=== PATIENT | male | born 1945 | race Caucasian/White ===

== ENCOUNTER 2016-12-03 18:29 | Emergency (ER) | payer MEDICARE, OTHER ==
[~2016-12-03] VITALS: Ht 182.9 cm; Wt 79.0 kg
[2016-12-03] MEDS ORDERED: INSUH10VL SC (18:53)
[2016-12-03] MEDS ORDERED: SIMV40TA2 PO (18:53)
[2016-12-03] MEDS ORDERED: GLYB5TA GT (18:53)
[2016-12-03] MEDS ORDERED: METO25TA4 PO (18:53)
[2016-12-03] MEDS ORDERED: INSULANT SC (18:53)
[2016-12-03 20:58] LABS: BASO % 0.1 % (0.0-1.0); EOS # 0.1 K/mm3 (0.0-0.50); EOS % 0.7 % (0.0-3.0); LARGE UNSTAINED CELL # 0.1 K/mm3 (0.0-0.4); LARGE UNSTAINED CELL % 0.9 % (0.0-4.0); LYMPH # 1.4 K/mm3 (1.5-4.5); LYMPH % 9.8 % (24.0-44.0); MEAN CORPUSCULAR HEMOGLOBIN 32.1 pg (27.0-33.0); MEAN CORPUSCULAR HGB CONC 33.8 g/dl (32.0-36.5); MEAN CORPUSCULAR VOLUME 94.8 fl (80.0-96.0); MONO # 0.5 K/mm3 (0.0-0.8); MONO % 4.1 % (0.0-5.0); NEUTROPHILS # 10.8 K/mm3 (1.8-7.7); NEUTROPHILS % 84.4 % (36.0-66.0); PLATELET COUNT, AUTOMATED 152 k/mm3 (150-450); RED CELL DISTRIBUTION WIDTH 12.9 % (11.5-14.5); WHITE BLOOD COUNT 12.8 K/mm3 (4.0-10.0)
[2016-12-03] MEDS ORDERED: NS 1,000 ML IV SCH (20:58)
[2016-12-03] MEDS ORDERED: METOCLOPRAMIDE INJ 10MG/2ML VIAL (J2765) IV ONE (21:00)
[2016-12-03] MEDS ORDERED: CYCLOBENZAPRINE 10 MG TAB PO ONE (21:00)
[2016-12-03 21:03] LABS: ALBUMIN 3.9 GM/DL (3.2-5.2); ALBUMIN/GLOBULIN RATIO 1.34 (1.00-1.93); ALKALINE PHOSPHATASE 87 U/L (45-117); ALT/SGPT 19 U/L (12-78); ANION GAP 6 MEQ/L (8-16); AST/SGOT 15 U/L (15-37); BILIRUBIN,TOTAL 0.4 MG/DL (0.2-1.0); BLOOD UREA NITROGEN 19 MG/DL (7-18); CALCIUM LEVEL 8.9 MG/DL (8.8-10.2); CARBON DIOXIDE LEVEL 25 MEQ/L (21-32); CHLORIDE LEVEL 108 MEQ/L (98-107); CREATININE FOR GFR 0.93 MG/DL (0.70-1.30); GLOMERULAR FILTRATION RATE > 60.0 (>42); GLUCOSE, FASTING 105 MG/DL (83-110); SODIUM LEVEL 139 MEQ/L (136-145); TOTAL PROTEIN 6.8 GM/DL (6.4-8.2)
[2016-12-03 21:23] VITALS: BP 174/81
--- NOTE | 2016-12-03 22:00 | REPUSA ---
CT of the head Clinical history: Headache. Technique: Multiple axial CT images were obtained through the head without administration of contrast . Findings: The ventricles and sulci are symmetric bilaterally. Minimal subcortical low attenuation kelin nges are seen in the frontal lobes bilaterally. There is no evidence of acute hemorrhage or infarct. There is no midline shift, mass effect, or extra-axial fluid collection. The osseous structures are u nremarkable. The visualized paranasal sinuses and mastoid air cells are clear. Impression: No evidence of acute hemorrhage or infarct. Minimal chronic small vessel ischemic changes , predominantly in the frontal lobes.
[2016-12-03] MEDS ORDERED: CYCL10TA PO (22:29)
== END 2016-12-03 22:40 | disposition home or self-care (01) ==
LOC: M ED 18:29
DX: M43.6 Torticollis (principal); R51 Headache; E11.9 Type 2 diabetes mellitus without complications; I25.10 Atherosclerotic heart disease of native coronary artery without angina pectoris; F17.200 Nicotine dependence, unspecified, uncomplicated; Z95.1 Presence of aortocoronary bypass graft; Z79.4 Long term (current) use of insulin; Z79.899 Other long term (current) drug therapy; Z88.2 Allergy status to sulfonamides
CPT/HCPCS: 70450; 80053; 85025; 96374; 99284; J2765

== ENCOUNTER → 2021-09-08 | Outpatient (CLI) | payer OTHER ==
[~2021-09-08] MED LIST: CYCL-707 PO; GLYB5TAB6 GT; INSUH10VL SC; INSULANT SC; METO25TA4 PO; SIMV40TA20 PO
== END ==
LOC: M SOG 10:03
PROVIDERS: ATTEND Orthopaedic Surgery Hand Surgery
DX: M79.641 Pain in right hand (principal); M79.642 Pain in left hand

== ENCOUNTER → 2021-12-27 | Outpatient (CLI) | payer MEDICARE, OTHER ==
[~2021-12-27] MED LIST changes: +ELIQ5TAB PO; -GLYB5TAB6 GT; +GLYB5TAB6 PO; +LEVO75TA4 PO; +METF-839 PO; +VITA200016 PO
== END ==
LOC: M LABSMTC 10:29
PROVIDERS: ATTEND Anesthesiology
DX: Z01.818 Encounter for other preprocedural examination (principal); Z11.52 Encounter for screening for COVID-19

== ENCOUNTER 2022-01-01 06:41 | Day surgery (SDC) | payer OTHER ==
[~2022-01-01] VITALS: Ht 182.9 cm; Wt 81.6 kg
[2022-01-01] MEDS ORDERED: BUPIVACAINE HCL 0.25% 30ML VIAL As Ordered ONE (06:44)
[2022-01-01] MEDS ORDERED: BACITRACIN OINTMENT 30GM TUBE As Ordered ONE (06:44)
[2022-01-01] MEDS ORDERED: INSULIN LISPRO (NovoLOG) PER UNIT SC PRN ×2 (07:05→10:00)
[2022-01-01] MEDS ORDERED: LR 1,000 ML IV SCH ×2 (07:05→10:00)
[2022-01-01] MEDS ORDERED: ACETAMINOPHEN 1000MG 100ML IV BTL (OFIRMEV) (J0131 PER 10MG) As Ordered ONE (07:17)
[2022-01-01] MEDS ORDERED: fentaNYL 250 MCG/5 ML INJECTION As Ordered ONE (07:17)
[2022-01-01] MEDS ORDERED: ONDANSETRON 4MG 2ML VIAL As Ordered ONE (07:17)
[2022-01-01] MEDS ORDERED: dexameTHASONE 4 MG/ML 1ML VIAL (J1100 PER 1MG) As Ordered ONE (07:17)
[2022-01-01] MEDS ORDERED: LIDOCAINE 2% 100MG/5ML SDV (FOR ANES.) As Ordered ONE (07:17)
[2022-01-01] MEDS ORDERED: propofoL 200 MG/20 ML VIAL As Ordered ONE (07:17)
[2022-01-01] MEDS ORDERED: ceFAZolin 2 GM/D5W 50 ML IV BAG (J0690 PER 500MG) As Ordered ONE (08:27)
[2022-01-01] MEDS ORDERED: PHENYLephrine 500MCG 5ML (100MCG/ML) SYRINGE As Ordered ONE (08:48)
[2022-01-01] MEDS ORDERED: KETOROLAC 60MG 2ML VIAL As Ordered ONE (09:12)
[2022-01-01] MEDS ORDERED: oxyCODONE 5MG TAB PO PRN (10:00)
[2022-01-01] MEDS ORDERED: ONDANSETRON 4MG 2ML VIAL IV PRN (10:00)
[2022-01-01] MEDS ORDERED: fentaNYL 100 MCG/2 ML INJECTION IV PRN (10:00)
[2022-01-01 12:00] VITALS: BP 122/78
== END 2022-01-01 12:05 | disposition home or self-care (01) ==
LOC: M SDC 06:41
PROVIDERS: ATTEND Orthopaedic Surgery Hand Surgery
DX: M72.0 Palmar fascial fibromatosis [Dupuytren] (principal); E11.9 Type 2 diabetes mellitus without complications; Z95.1 Presence of aortocoronary bypass graft; F17.210 Nicotine dependence, cigarettes, uncomplicated; Z88.2 Allergy status to sulfonamides
CPT/HCPCS: 26123; 76000; 88304; J0131; J0690; J1100; J1885; J2370; J2405; J3010

== ENCOUNTER → 2023-10-07 | Outpatient (CLI) | payer OTHER | LOC: M RAD 13:45 | PROVIDERS: ATTEND Nurse Practitioner Family | DX: Z12.2 Encounter for screening for malignant neoplasm of respiratory organs (principal); F17.210 Nicotine dependence, cigarettes, uncomplicated ==

== ENCOUNTER → 2024-05-06 | Outpatient (CLI) | payer OTHER, MEDICARE | LOC: M RAD 08:42 | PROVIDERS: ATTEND Nurse Practitioner Family | DX: Z87.891 Personal history of nicotine dependence (principal) ==

== ENCOUNTER → 2024-11-04 | Outpatient (CLI) | payer OTHER, MEDICARE ==
[2024-11-04 17:36] LABS: APPEARANCE, URINE HAZY (CLEAR); BACTERIA, URINE AUTO NEGATIVE (NEGATIVE); BILIRUBIN, URINE AUTO NEGATIVE (NEGATIVE); BLOOD, URINE BLOOD 2+ (NEGATIVE); GLUCOSE, URINE (UA) AUTO 1+ mg/dL (NEGATIVE); KETONE, URINE AUTO NEGATIVE (NEGATIVE); LEUKOCYTE ESTERASE, URINE AUTO NEGATIVE (NEGATIVE); NITRITE, URINE AUTO NEGATIVE (NEGATIVE); PROTEIN, URINE AUTO 3+ mg/dL (NEGATIVE); RBC, URINE AUTO 6 /HPF (0-3); SPECIFIC GRAVITY URINE AUTO 1.028 (1.002-1.035); SQUAMOUS EPITHELIAL CELL UR AU 1 /HPF (0-6); UROBILINOGEN, URINE AUTO 0.2 mg/dL (0.0-2.0); WBC, URINE AUTO 3 /HPF (0-3)
== END ==
LOC: M RAD 12:21
PROVIDERS: ATTEND Physician Assistant
DX: N20.0 Calculus of kidney (principal); N23 Unspecified renal colic

== ENCOUNTER 2024-11-10 10:30 | Inpatient (IN) | payer OTHER, MEDICARE ==
[~2024-11-10] VITALS: Ht 182.9 cm; Wt 83.3 kg
[2024-11-10] MEDS ORDERED: MORPHINE 2 MG/ML 1 ML VIAL IV PRN (11:15)
[2024-11-10 12:09] LABS: BASO # 0.0 10^3/uL (0.0-0.2); BASO % 0.2 % (0.0-1.0); EOS # 0.1 10^3/uL (0.0-0.5); EOS % 0.6 % (0.0-3.0); LYMPH # 1.6 10^3/uL (1.5-5.0); LYMPH % 12.3 % (24.0-44.0); MONO # 1.0 10^3/uL (0.0-0.8); MONO % 7.8 % (2.0-8.0); NEUTROPHILS # 10.5 10^3/uL (1.5-8.5); NEUTROPHILS % 78.6 % (36.0-66.0); PLATELET COUNT, AUTOMATED 185 10^3/uL (150-450)
[2024-11-10] MEDS: MORPHINE 2 MG/ML 1 ML VIAL IV PRN (12:12)
[2024-11-10] MEDS: ONDANSETRON 4MG 2ML VIAL IV ONE (12:12)
[2024-11-10 12:24] LABS: INR 1.39
[2024-11-10 12:33] LABS: ALT/SGPT 17.0 U/L (7.0-40); AST/SGOT 18.0 U/L (<34); CALCIUM LEVEL 9.4 MG/DL (8.3-10.6); CARBON DIOXIDE LEVEL 22.0 MMOL/L (20-31); CHLORIDE LEVEL 108.0 MMOL/L (98-107); CREATININE FOR GFR 1.76 MG/DL (0.70-1.30); GLOMERULAR FILTRATION RATE 38.4 (>35); POTASSIUM SERUM 5.6 MMOL/L (3.5-5.1); SODIUM LEVEL 142.0 MMOL/L (136-145)
[2024-11-10] MEDS: [UNRECOGNIZED DRUG - OTHER] IV ONE (12:50)
[2024-11-10] MEDS: NS 0.9% IV ONE (12:50)
[2024-11-10 15:06] LABS: KETONE, URINE AUTO RFX NEGATIVE (NEGATIVE); LEUKOCYTE ESTERASE UR AUTO RFX NEGATIVE (NEGATIVE); NITRITE, URINE AUTO RFX NEGATIVE (NEGATIVE); RBC, URINE AUTO RFX 87 /HPF (0-3); SQUAM EPITHELIAL CELL UR AURFX 0 /HPF (0-6); WBC, URINE AUTO RFX 2 /HPF (0-3)
[2024-11-10] MEDS: MORPHINE 4 MG/ML 1 ML VIAL IV PRN (16:33)
[2024-11-10] MEDS ORDERED: LIDOCAINE 2% 100 MG/5 ML SDV (FOR ANES.) As Ordered ONE (16:49)
[2024-11-10] MEDS: CALCIUM CHLORIDE 10% 1 GM/10 ML SYR IV ONE (16:54)
[2024-11-10] MEDS: cefTRIAXone SOD 1 GM in DEXTROSE 5% (D5W) ADV/MINI-BAG 50 ML IV ONE (17:35)
[2024-11-10] MEDS: LIDOCAINE 2% 5 ML JELLY UROJET As Ordered ONE (17:54)
[2024-11-10] MEDS: ISOVUE-300 61% 100 ML VIAL As Ordered ONE (18:00)
[2024-11-10] MEDS ORDERED: ONDANSETRON 4MG 2ML VIAL IV PRN ×2 (18:20→20:40)
[2024-11-10] MEDS ORDERED: HYDROMORPHONE HCL 0.5 MG/0.5 ML SYRINGE IV PRN (18:20)
[2024-11-10 18:22] LABS: CALCIUM LEVEL 9.3 MG/DL (8.3-10.6); CARBON DIOXIDE LEVEL 18.0 MMOL/L (20-31); CHLORIDE LEVEL 112.0 MMOL/L (98-107); CREATININE FOR GFR 1.6 MG/DL (0.70-1.30); GLOMERULAR FILTRATION RATE 43.0 (>35); POTASSIUM SERUM 6.2 MMOL/L (3.5-5.1); SODIUM LEVEL 142.0 MMOL/L (136-145)
[2024-11-10] MEDS: LABETALOL 100 MG/20 ML VIAL IV PRN (18:55)
[2024-11-10] MEDS: PATIROMER SORBITEX CALCIUM 8.4GM POWDER PACKET PO STA (20:37)
[2024-11-10] MEDS ORDERED: ACETAMINOPHEN 325 MG TAB PO PRN (20:40)
[2024-11-10] MEDS: LR 1,000 ML IV SCH (20:53)
[2024-11-10] MEDS: CALCIUM GLUCONATE 1,000 MG in DEXTROSE 5% (D5W) MINI-BAG PLU 100 ML IV ONE (20:53)
[2024-11-10] MEDS: HumuLIN R (REGULAR) INSULIN (NovoLIN R) **100 U/ML** PER UNIT IV STA (20:54)
[2024-11-10] MEDS: DEXTROSE 50% 50 ML SYRINGE IV STA (20:54)
[2024-11-10] MEDS: ALBUTEROL SULFATE 2.5 MG/0.5 ML INH CONCENTRATE NEB SOLN NEB SCH (20:55)
[2024-11-10 21:33] VITALS: BP 150/72; TEMP 97.8; O2SAT 98
[2024-11-10] MEDS: NS (Normal Saline) 0.9% 1,000 ML IV SCH (21:40)
[2024-11-10] MEDS: DOCUSATE SODIUM 100 MG CAPSULE PO SCH (21:43)
[2024-11-10] MEDS ORDERED: ACET-907 PO (22:09)
[2024-11-10] MEDS ORDERED: METF10004 PO (22:09)
[2024-11-10] MEDS ORDERED: CYAN500T3 PO (22:12)
[2024-11-10] MEDS ORDERED: HOME MED LIST COMPLETE! XX SCH (22:15)
[2024-11-10 22:33] VITALS: BP 145/63; TEMP 97.9; O2SAT 95
[2024-11-10 23:34] VITALS: BP 133/62; TEMP 96.8; O2SAT 96
[2024-11-11] VITALS (9 sets, daily range): BP systolic 133–168; BP diastolic 50–74; TEMP 96.8–97.7; O2SAT 95–98
[2024-11-11 01:48] LABS: CALCIUM LEVEL 8.8 MG/DL (8.3-10.6); CARBON DIOXIDE LEVEL 22.0 MMOL/L (20-31); CHLORIDE LEVEL 111.0 MMOL/L (98-107); CREATININE FOR GFR 1.46 MG/DL (0.70-1.30); GLOMERULAR FILTRATION RATE 48.0 (>35); POTASSIUM SERUM 5.3 MMOL/L (3.5-5.1); SODIUM LEVEL 141.0 MMOL/L (136-145)
[2024-11-11] MEDS ORDERED: DEXTROSE 50% 50 ML SYRINGE IV PRN (01:55)
[2024-11-11] MEDS ORDERED: GLUCAGON INJ 1 MG VIAL SC PRN (01:55)
[2024-11-11] MEDS ORDERED: GLUCOSE 4 GM CHEW PO PRN (01:55)
[2024-11-11 04:34] LABS: PLATELET COUNT, AUTOMATED 161 10^3/uL (150-450)
[2024-11-11 05:14] LABS: ALT/SGPT 12.0 U/L (7.0-40); AST/SGOT 13.0 U/L (<34); CALCIUM LEVEL 8.8 MG/DL (8.3-10.6); CARBON DIOXIDE LEVEL 22.0 MMOL/L (20-31); CHLORIDE LEVEL 113.0 MMOL/L (98-107); CREATININE FOR GFR 1.4 MG/DL (0.70-1.30); GLOMERULAR FILTRATION RATE 50.5 (>35); POTASSIUM SERUM 5.2 MMOL/L (3.5-5.1); SODIUM LEVEL 144.0 MMOL/L (136-145)
[2024-11-11] MEDS: INSULIN LISPRO (NovoLOG) PER UNIT SC SCH ×2 (08:58→21:00)
[2024-11-11] MEDS: NS 0.45% 1,000 ML IV SCH (08:58)
[2024-11-11] MEDS: TAMSULOSIN 0.4 MG CAP PO SCH (08:58)
[2024-11-11 09:28] LABS: CALCIUM LEVEL 8.7 MG/DL (8.3-10.6); CARBON DIOXIDE LEVEL 22.0 MMOL/L (20-31); CHLORIDE LEVEL 114.0 MMOL/L (98-107); CREATININE FOR GFR 1.27 MG/DL (0.70-1.30); GLOMERULAR FILTRATION RATE 56.8 (>35); POTASSIUM SERUM 5.1 MMOL/L (3.5-5.1); SODIUM LEVEL 145.0 MMOL/L (136-145)
[2024-11-11] MEDS: CYANOCOBALAMIN 500 MCG TAB PO SCH (12:00)
[2024-11-11] MEDS: INSULIN GLARGINE-YFGN 1 UNITS/0.01 ML SC SCH (12:06)
[2024-11-11] MEDS: METOPROLOL TART 25 MG TABLET PO SCH (12:07)
[2024-11-11] MEDS: cefTRIAXone SOD 1 GM in DEXTROSE 5% (D5W) ADV/MINI-BAG 50 ML IV SCH (16:57)
[2024-11-11] MEDS: ACETAMINOPHEN 325 MG TAB PO PRN (16:57)
[2024-11-11 16:59] LABS: CALCIUM LEVEL 8.8 MG/DL (8.3-10.6); CARBON DIOXIDE LEVEL 21.0 MMOL/L (20-31); CHLORIDE LEVEL 114.0 MMOL/L (98-107); CREATININE FOR GFR 1.16 MG/DL (0.70-1.30); GLOMERULAR FILTRATION RATE 63.3 (>35); POTASSIUM SERUM 5.0 MMOL/L (3.5-5.1); SODIUM LEVEL 144.0 MMOL/L (136-145)
[2024-11-11] MEDS: amLODIPine 5 MG TAB PO ONE (17:49)
[2024-11-11] MEDS: SIMVASTATIN 40 MG TAB PO SCH (21:03)
[2024-11-11] MEDS ORDERED: SODIUM CHLORIDE NASAL 0.65% SPRAY BTL (OCEAN) PRN (21:20)
[2024-11-11] MEDS ORDERED: NICOTINE 21 MG/24 HR 1 EA TRANSDERMAL TD PRN (21:20)
[2024-11-12 04:43] VITALS: BP 158/74; TEMP 97.3; O2SAT 97
[2024-11-12] MEDS: LEVOTHYROXINE 75 MCG TABLET (0.075 MG) PO SCH (06:19)
[2024-11-12 08:04] LABS: PLATELET COUNT, AUTOMATED 177 10^3/uL (150-450)
[2024-11-12 08:38] LABS: CALCIUM LEVEL 8.6 MG/DL (8.3-10.6); CARBON DIOXIDE LEVEL 23.0 MMOL/L (20-31); CHLORIDE LEVEL 110.0 MMOL/L (98-107); CREATININE FOR GFR 1.04 MG/DL (0.70-1.30); GLOMERULAR FILTRATION RATE 72.1 (>35); POTASSIUM SERUM 4.7 MMOL/L (3.5-5.1); SODIUM LEVEL 143.0 MMOL/L (136-145)
[2024-11-12 08:50] VITALS: BP 162/56
[2024-11-12] MEDS ORDERED: CEFD1CAP9 PO (11:17)
[2024-11-12] MEDS ORDERED: TAMS-18 PO (11:17)
== END 2024-11-12 12:37 | disposition home or self-care (01) | DRG 661 ==
LOC: M ED 10:30 → INTOOBSV 16:42 → M ED INP 16:42 → M PCU 21:13 → OBSVTOIN 11-11 10:35 → M MSPAV 11-11 17:57
PROVIDERS: ADMIT Urology; ATTEND Urology
PROC: 0T778DZ Dilation of Left Ureter with Intraluminal Device, Via Natural or Artificial Opening Endoscopic (ICD-10-PCS; principal; 2024-11-10 17:15)
DX: N13.2 Hydronephrosis with renal and ureteral calculous obstruction (principal); N17.9 Acute kidney failure, unspecified; I25.10 Atherosclerotic heart disease of native coronary artery without angina pectoris; Z95.5 Presence of coronary angioplasty implant and graft; I48.91 Unspecified atrial fibrillation; N39.0 Urinary tract infection, site not specified; E11.22 Type 2 diabetes mellitus with diabetic chronic kidney disease; E03.9 Hypothyroidism, unspecified; N18.31 Chronic kidney disease, stage 3a; E87.5 Hyperkalemia; N40.0 Benign prostatic hyperplasia without lower urinary tract symptoms; E78.5 Hyperlipidemia, unspecified; Z79.4 Long term (current) use of insulin; Z79.84 Long term (current) use of oral hypoglycemic drugs; Z79.01 Long term (current) use of anticoagulants; Z79.890 Hormone replacement therapy; Z79.899 Other long term (current) drug therapy; Z85.51 Personal history of malignant neoplasm of bladder; Z85.46 Personal history of malignant neoplasm of prostate

== ENCOUNTER → 2024-12-31 | Outpatient (CLI) | payer OTHER, MEDICARE ==
[~2024-12-31] MED LIST changes: +ACET-907 PO; +CEFD1CAP9 PO; +CYAN500T3 PO; +METF10004 PO; +TAMS-18 PO
[2024-12-31 11:20] LABS: APPEARANCE, URINE HAZY (CLEAR); BACTERIA, URINE AUTO NEGATIVE (NEGATIVE); BILIRUBIN, URINE AUTO NEGATIVE (NEGATIVE); BLOOD, URINE BLOOD 2+ (NEGATIVE); GLUCOSE, URINE (UA) AUTO 3+ mg/dL (NEGATIVE); KETONE, URINE AUTO TRACE mg/dL (NEGATIVE); LEUKOCYTE ESTERASE, URINE AUTO TRACE (NEGATIVE); MUCUS, URINE SMALL (NEGATIVE); NITRITE, URINE AUTO NEGATIVE (NEGATIVE); PROTEIN, URINE AUTO 2+ mg/dL (NEGATIVE); RBC, URINE AUTO 171 /HPF (0-3); SPECIFIC GRAVITY URINE AUTO 1.021 (1.002-1.035); SQUAMOUS EPITHELIAL CELL UR AU 0 /HPF (0-6); UROBILINOGEN, URINE AUTO 0.2 mg/dL (0.0-2.0); WBC, URINE AUTO 14 /HPF (0-3)
== END ==
LOC: M RAD 10:22
PROVIDERS: ATTEND Nurse Practitioner Family
DX: Z01.818 Encounter for other preprocedural examination (principal); N20.1 Calculus of ureter

== ENCOUNTER → 2025-03-02 | Outpatient (REF) | payer OTHER, MEDICARE ==
[~2025-03-02] MED LIST changes: +TAMS1CAP17 PO
[2025-03-02 12:02] LABS: APPEARANCE, URINE CLOUDY (CLEAR); BACTERIA, URINE AUTO NEGATIVE (NEGATIVE); BILIRUBIN, URINE AUTO NEGATIVE (NEGATIVE); BLOOD, URINE BLOOD 3+ (NEGATIVE); GLUCOSE, URINE (UA) AUTO NEGATIVE (NEGATIVE); KETONE, URINE AUTO TRACE mg/dL (NEGATIVE); LEUKOCYTE ESTERASE, URINE AUTO NEGATIVE (NEGATIVE); MUCUS, URINE SMALL (NEGATIVE); NITRITE, URINE AUTO NEGATIVE (NEGATIVE); PROTEIN, URINE AUTO 2+ mg/dL (NEGATIVE); RBC, URINE AUTO TNTC /HPF (0-3); SPECIFIC GRAVITY URINE AUTO 1.020 (1.002-1.035); SQUAMOUS EPITHELIAL CELL UR AU 1 /HPF (0-6); UROBILINOGEN, URINE AUTO 0.2 mg/dL (0.0-2.0); WBC, URINE AUTO 9 /HPF (0-3)
== END ==
LOC: M SMT 11:36
PROVIDERS: ATTEND Urology
DX: Z01.818 Encounter for other preprocedural examination (principal); N20.1 Calculus of ureter; N39.0 Urinary tract infection, site not specified

== ENCOUNTER → 2025-03-05 | Day surgery (SDC) | payer OTHER, MEDICARE ==
[~2025-03-05] VITALS: Ht 182.9 cm; Wt 78.7 kg
[~2025-03-05] MED LIST changes: +GLYCOPYRROLATE INJ 0.2 MG/ML 2 ML VIAL As Ordered ONE; +HYDROMORPHONE HCL 0.5 MG/0.5 ML SYRINGE IV PRN; +LIDOCAINE 2% 100 MG/5 ML SDV (FOR ANES.) As Ordered ONE; +LR 1,000 ML IV SCH; +ONDANSETRON 4MG/2ML VIAL As Ordered ONE; +ONDANSETRON 4MG/2ML VIAL IV PRN; +dexAMETHasone 4 MG/ML 1 ML VIAL As Ordered ONE
[2025-03-05] MEDS: VANCOMYCIN HCL 1,000 MG, VIAL MATE ADAPTER 1 EACH in NS 250 ML IV ONE (08:45)
[2025-03-05] MEDS: ISOVUE-300 61% 100 ML VIAL As Ordered ONE (09:14)
[2025-03-05 11:18] VITALS: BP 144/73; TEMP 96; O2SAT 98
== END | disposition home or self-care (01) ==
LOC: M SDC 07:25
PROVIDERS: ATTEND Urology
DX: N20.1 Calculus of ureter (principal); I48.91 Unspecified atrial fibrillation; I25.2 Old myocardial infarction; E11.9 Type 2 diabetes mellitus without complications; Z88.2 Allergy status to sulfonamides; Z79.899 Other long term (current) drug therapy; F17.210 Nicotine dependence, cigarettes, uncomplicated
CPT/HCPCS: 52356; 74420; 82365; C2617; J1100; J1580; J1596; J2405; J3010; J3373; Q9967